=== PATIENT | female | born 1980 | race Caucasian/White ===

== ENCOUNTER 2016-12-13 07:41 | Emergency (ER) | payer OTHER ==
[2016-12-13 07:58] VITALS: BP 116/84
--- NOTE | 2016-12-13 08:00 | UC ---
Abdominal Pain Female HPI - HPI Summary HPI Summary: She has had right lower flank pain for about two weeks. at times pressure and massage down there did help. Now palpation of the area hurts more. She has had nausea. she has had right abd pain as well. she has hx of prior stone without need for intervention. she has seen Dr. Bailey one time. - History of Current Complaint Chief Complaint: UCAbdominalPain Stated Complaint: ABDOMINAL PAIN Time Seen by Provider: 12/13/16 07:47 Hx Obtained From: Patient Hx Last Menstrual Period: pt states she does not get a menses d/t an ablasion ?: No Onset/Duration: Gradual Onset, Lasting Weeks, Worse Since - last night. Timing: Constant Severity Initially: Mild Severity Currently: Severe Location: Other - diffuse right sided pain and right flank pain. Radiates to: Back, Flank Character: Aching Aggravating Factor(s): Movement Alleviating Factor(s): Nothing Associated Signs and Symptoms: Positive: Back Pain, Nausea. Negative: Diaphoresis, Fever, Cough, Chest Pain, Constipation, Blood in Stool, Urinary Symptoms, Decreased Appetite, Vaginal Bleeding, Vaginal Discharge, Vomiting, Diarrhea Allergies/Adverse Reactions: Allergies Allergy/AdvReac Type Severity Reaction Status Date / Time Prochlorperazine Allergy Severe See Comment Verified 12/13/16 07:49 [From Compazine] Promethazine [From Phenergan] Allergy Severe See Comment Verified 12/13/16 07:49 Sulfamethoxazole Allergy Severe See Comment Verified 12/13/16 07:49 w/Trimethoprim [From Bactrim] Phenazopyridine Allergy Intermediate Hives Verified 12/13/16 07:49 [From Pyridium] Home Medications: Home Medications Acetaminophen [Acetaminophen Extra Stren] 1,500 mg PO Q4H PRN 12/13/16 [History Confirmed 12/13/16] PMH/Surg Hx/FS Hx/Imm Hx Previously Healthy: No - kidney stone. - Surgical History Surgical History: Yes Surgery Procedure, Year, and Place: C-SECT X2, uterine ablation, tubes tied. Fallopian tubes removed - Family History Known Family History: Positive: Cardiac Disease, Hypertension, Diabetes - Social History Alcohol Use: Rare Alcohol Amount: 1 PER YEAR Substance Use Type: None Smoking Status (MU): Former Smoker Have You Smoked in the Last Year: No When Did the Patient Quit Smoking/Using Tobacco: 2000 Review of Systems Gastrointestinal: Abdominal Pain, Nausea Genitourinary: Negative All Other Systems Reviewed And Are Negative: Yes Physical Exam Triage Information Reviewed: Yes Appearance: Pain Distress - she has some obvious pain without extremis or severe distress., Obese Vital Signs: Initial Vital Signs Temp 97.3 F 12/13/16 07:52 Pulse 113 12/13/16 07:52 Resp 18 12/13/16 07:52 BP 116/84 12/13/16 07:52 Pulse Ox 99 12/13/16 07:52 Vital Signs Reviewed: Yes Eye Exam: Normal ENT Exam: Normal Neck exam: Normal Respiratory Exam: Normal Cardiovascular Exam: Normal - HR in triage noted and elevated. during my exam HR is 92. Abdominal Exam: Other - external pelvic no lesions. internal, no discharge or inflammation. No cervical inflammation or friability. Bi manual does not reveal guarding or mass. Abdomen Description: Positive: CVA Tenderness (R). Negative: Distended, Guarding, Hernia @, Hepatomegaly, McBurney's Point Tenderness - there is diffuse right sided abd tenderness per patient but no wincing or guarding and no rebound. Neg psoas sign., Peritoneal Signs, Splenomegaly Musculoskeletal Exam: Normal Neurological Exam: Normal Skin Exam: Normal Re-Evaluation - Re-Evaluation First Eval Change: Improved Comment: We talk at length about the results. she says this is similar to prior presentation about a year ago. She says she had 4mo of similar pain and pcp/accountant clerk conducted workup with CT w/ contrast, ultrasounds and exams. they finally elected to perform ex laproscopy and found fallopian tube inflammation. the prior episode was similar in type and location of pain. her repeat exam is benign again with no significant tenderness and no guarding. we will complete workup with pelvic exam. Abd Pain Female Course/Dx - Course Course Of Treatment: Repeat episode of diffuse right flank and right abd pain. her two exams are benign and does not show evidence of acute abd process such as appendiciits, PID, ovarian torsion, pyelonephritis, serious infection. We have also investigated for kidney stone. she is low risk for pelvic infection and without fever or guarding on pelvic exam, I do not believe this is PID or serious pelvic infection. becaause this has been present for two weeks, this has occurred exactly the same as prior, and because her serial exams are benign , I do not believe she needs to be sent to the ed or have a surgical consultation. she does however, agree to return for any worsening for a repeat exam because despite a normal ct which mentions normal appearing appedix, appedicitis is still on the differential. she agrees fully with the plan and re eval if needed. - Differential Dx/Diagnosis Differential Diagnosis: Appendicitis, Constipation, Diverticulitis, Ectopic , Irritable Bowel Syndrome, KS, Ovarian Cyst, Pancreatitis, Pelvic Inflammatory Disease, , Renal Colic, Urinary Tract Infection Provider Diagnoses: flank pain. abd pain Discharge - Discharge Plan Condition: Good Disposition: HOME Prescriptions: traMADol TAB* [Ultram*] 50 mg PO Q12H PRN #12 tab MDD 2 PRN Reason: Pain Patient Education Materials: Acute Abdominal Pain (ED), Flank Pain (ED) Referrals: Ronan Ramirez PA [Primary Care Provider] - 1 Day
[2016-12-13] MEDS ORDERED: Ketorolac INJ* 30 MG/ML 1 ML VIAL IV ONE (08:07)
[2016-12-13] MEDS ORDERED: Ondansetron INJ* 2 MG/ML VIAL IV ONE (08:07)
[2016-12-13] MEDS ORDERED: NS 0.9% 1000 ML* 1,000 ML IV ONE (08:07)
--- NOTE | 2016-12-13 09:06 | RAD ---
INDICATION: Right flank abdominal pain. COMPARISON: Comparison is made with a prior CT of the abdomen and pelvis from May 26, 2014. TECHNIQUE: A CT scan of the abdomen and pelvis was performed without intravenous or oral contrast. Contiguous axial sections were obtained from the lung bases through the symphysis pubis. Images were reconstructed in the coronal and sagittal planes. FINDINGS: There is minimal atelectasis in the region of the right middle lobe. The lung bases are otherwise clear. No pleural effusion is present. The liver is moderately enlarged and the spleen is mildly enlarged. The liver is decreased in attenuation consistent with fatty infiltration. No significant focal abnormality is seen on this noncontrast study. No calcified gallstones are noted. The pancreas appears to be within normal limits. The adrenal glands and kidneys are normal in size. There are multiple left renal calculi measuring up to 0.9 cm in size. There is a small punctate 1 mm calculus in the midportion of the right kidney. No hydronephrosis is seen. No ureteral or bladder calculi are seen. The aorta is normal in caliber without significant calcific plaque. No significant enlarged retroperitoneal lymph nodes are seen. The stomach, small and large bowel appear nondistended. The appendix is within normal limits. There is no evidence for diverticulitis or colitis. There is a small periumbilical hernia containing fat. The uterus is anteverted and mildly prominent. The ovaries appear normal in size. No free intraperitoneal air or fluid is seen. No significant focal osseous abnormality is seen. IMPRESSION: 1. BILATERAL RENAL CALCULI, NO EVIDENCE FOR OBSTRUCTION OR HYDRONEPHROSIS. 2. HEPATOSPLENOMEGALY AND HEPATIC STEATOSIS.
[2016-12-13 14:44] LABS: Hematocrit 37 % (35-47); Hemoglobin 12.3 g/dl (12.0-16.0); Mean Corpuscular HGB Conc 33 g/dl (31-36); Mean Corpuscular Hemoglobin 28 pg (27-31); Mean Corpuscular Volume 86 fL (80-97); Mean Platelet Volume 8 um3 (7.4-10.4); Red Blood Count 4.35 10^6/ul (4.0-5.4); Red Cell Distribution Width 14 % (10.5-15); White Blood Count 10.4 10^3/ul (3.5-10.8)
[2016-12-13 14:55] LABS: Albumin 4.1 g/dL (3.2-5.2); BUN/Creatinine Ratio 14.6 (8-20); Calcium 9.1 mg/dL (8.6-10.3); EGFR Non-African American 79.3 (>60); Globulin 2.8 g/dL (2-4); Potassium 4.5 mmol/L (3.5-5.0); Total Bilirubin 0.5 mg/dL (0.2-1.0); Total Protein 6.9 g/dL (6.4-8.9)
[2016-12-13 16:38] LABS: Erythrocyte Sed Rate 120 mm/Hr (0-14)
== END 2016-12-13 10:37 | disposition home or self-care (01) ==
LOC: UCCORT 07:41
DX: M54.5 Low back pain (principal); R10.31 Right lower quadrant pain; R11.0 Nausea; Z87.442 Personal history of urinary calculi; E66.9 Obesity, unspecified; Z88.2 Allergy status to sulfonamides; Z88.8 Allergy status to other drugs, medicaments and biological substances; Z87.891 Personal history of nicotine dependence
CPT/HCPCS: 36415; 74176; 80053; 81003; 83690; 85025; 85652; 86141; 87086; 87480; 87491; 87510; 87591; 87661; 96361; 96374; 96375; 99212; G0463; J1885; J2405

== ENCOUNTER 2016-12-29 07:33 | Day surgery (SDC) | payer OTHER ==
[~2016-12-29 07:33] MED LIST: Buffered Lidocaine 0.9% SYRIN* 5 ML/SYR SYRINGE INTRADERM ONE; Famotidine IV* 10 MG/ML 2 ML (20 mg) IV ONE; Metoclopramide TAB* 10 MG PO ONE
[2016-12-29] MEDS ORDERED: Famotidine IV* 10 MG/ML 2 ML (20 mg) ONE (07:57)
[2016-12-29] MEDS ORDERED: Metoclopramide TAB* 10 MG ONE (07:57)
[2016-12-29 08:18] LABS: Comments Flag Yes; Hematocrit 38 % (35-47); Mean Corpuscular HGB Conc 34 g/dl (31-36); Mean Corpuscular Hemoglobin 29 pg (27-31); Mean Corpuscular Volume 85 fL (80-97); Mean Platelet Volume 8 um3 (7.4-10.4); Red Cell Distribution Width 13 % (10.5-15); White Blood Count 10.2 10^3/ul (3.5-10.8)
[2016-12-29] MEDS ORDERED: Propofol* 10 MG/ML 20 ML BTL IV PUSH ONE (08:19)
[2016-12-29] MEDS ORDERED: Ketorolac INJ* 30 MG/ML 1 ML VIAL ONE (08:19)
[2016-12-29] MEDS ORDERED: Dexamethasone IV* 4 MG/ML 1 ML (4 MG) ONE (08:19)
[2016-12-29] MEDS ORDERED: Ondansetron INJ* 2 MG/ML VIAL ONE (08:19)
[2016-12-29] MEDS ORDERED: Lidocaine 2% PF * 5 ML VIAL ONE (08:19)
[2016-12-29] MEDS ORDERED: Cisatracurium* 2 MG/ML MDV 5 ML ONE (08:20)
[2016-12-29] MEDS ORDERED: fentaNYL* 50 MCG/ML 2 ML VIAL (100 MCG VIAL) ONE (08:20)
[2016-12-29] MEDS ORDERED: Midazolam* 1 MG/ML 5 ML VIAL (5 MG) ONE (08:20)
[2016-12-29] MEDS ORDERED: KETAMINE HCL* 50 MG/ML 10 ML VIAL ONE (08:20)
[2016-12-29] MEDS ORDERED: Bupivacaine 0.25% SDV* 30 ML ONE (08:49)
[2016-12-29] MEDS ORDERED: Phenylephrine IV* 40 MCG/ML 10 ML SYRINGE ONE (09:48)
[2016-12-29] MEDS ORDERED: Glycopyrrolate IV* 0.2 MG/ML 1 ML VIAL ONE (10:09)
[2016-12-29] MEDS ORDERED: Neostigmine Methylsulfate* 2 MG/2 ML SYRINGE ONE (10:09)
[2016-12-29] MEDS ORDERED: Ondansetron INJ* 2 MG/ML VIAL IV PRN (10:35)
[2016-12-29] MEDS ORDERED: oxyCODONE/Acetamin 5/325 MG* TAB PO PRN (10:35)
[2016-12-29] MEDS ORDERED: fentaNYL* 50 MCG/ML 2 ML VIAL (100 MCG VIAL) IV PRN (10:35)
[2016-12-29] MEDS ORDERED: oxyCODONE/Acetamin 5/325 MG* TAB ONE (11:36)
[2016-12-29 11:56] VITALS: BP 102/69
--- NOTE | 2016-12-31 00:25 | OP ---
OPERATIVE REPORT: DATE OF OPERATION: 12/29/16 DATE OF : 82 SURGEON: Dora Ramirez MD DOCUMENT DESIGN SPECIALIST: Yunior Armenta MD PRE-OP DIAGNOSIS: Right lower quadrant pain. POST-OP DIAGNOSIS: Post tubal ablation syndrome. OPERATIVE PROCEDURE: Operative laparoscopy with lysis of adhesions. INDICATIONS: This patient is a 36-year-old 9, para 3, who presented to the office this month with complaint of severe right lower quadrant pains, which were fairly persistent. The pains were not cyclic. Recent evaluation in the emergency department including CT scan was unremarkable. The patient presented to the [facility] office because last year she had very similar pains, which again were fully worked up by [facility], GI, and General Surgery, but no clear cause could be determined. Then, at that point, I brought the patient to the operating room for evaluation and both fallopian tubes were found to be markedly dilated and inflamed. Both fallopian tubes were removed and the patient had complete resolution of her pain for the last year. The patient's history was significant for a tubal ligation followed by an endometrial ablation few years earlier. Considering the patient's pain had returned and there was still no visible evidence of any abnormalities on imaging, we discussed the option of potentially removing the right ovary in an attempt to improve the pain. She was extensively counseled and consent was signed. FINDINGS: Bilateral ovaries appeared normal. Uterus significantly abnormal with a right cornua that was markedly dilated clearly from trapped menstrual blood that could not pass through the cervix due to scarring from the prior ablation. Considering there were no visible abnormalities of the ovary, the ovary was left in place. Some adhesions were lysed around the right cornua for better visualization. ESTIMATED BLOOD LOSS: Less than 10 cc. URINE OUTPUT: 300 cc. IV FLUIDS: 1900 cc lactated Ringer's. MATERIALS TO LAB: None. COMPLICATIONS: None. DESCRIPTION OF PROCEDURE: The risks, benefits, and alternatives were described to the patient and informed consent was obtained. The patient was taken to the operating room with IV running where general anesthesia was induced and found to be adequate. The patient was prepped and draped in the normal sterile fashion in the high lithotomy position in [facility]. A time-out was performed. A Burks catheter was placed. A bivalved speculum was placed in the vagina and a Hulka tenaculum was placed through the cervix and into the uterine cavity for uterine manipulation. At that time, the speculum was removed and the legs were lowered. Attention was then turned to the abdomen and gloves were changed. Approximately 6 cc of 0.25% Marcaine was injected into and below the umbilicus. A vertical skin incision was then made with a scalpel, approximately 3 to 4 cm in length. The subcutaneous tissues were dissected until the fascia was grasped and elevated. The fascia was then incised in the midline in a sagittal fashion. The peritoneum was then entered sharply. A mini Demetrius retractor was then placed into the peritoneal cavity and this was tightened down. A GelPOINT was then prepared and placed on the retractor. The abdomen was insufflated with carbon dioxide gas to a maximum pressure of 15 mmHg. The patient was placed in the Trendelenburg position as much as possible. While using 2 graspers for manipulating the bowel, the uterus was lifted and the pelvis was carefully inspected. The findings were as noted above. There were some adhesions around the right cornua, which were taken down using the LigaSure. Once this was done, the right cornua could be well visualized and it was significantly dilated clearly from entrapped menstrual blood. With some significant difficulty, the right ovary was visualized and appeared to be normal with just a corpus luteum cyst present. The left ovary also appeared normal. Due to the patient's morbid obesity, there was large amount of bowel and omental fat, which made full visualization impossible. Considering the ovary appeared normal and the uterus was clearly the cause of her pain, the decision was made to discontinue the procedure at that time as she was not consented for a hysterectomy. The gas was allowed to escape from the abdomen and the Demetrius retractor was removed. The fascia was grasped on both sides and reapproximated using 0 Polysorb in a running fashion. The skin was then closed with 4-0 Monocryl in a subcuticular stitch and DermaFlex skin adhesive was applied over the incision. The Hulka tenaculum was then removed from the cervix , and the Burks catheter was also removed. The patient was then returned to the supine position. The patient tolerated the procedure well. Sponge, lap, and needle counts were correct x2. [id number]/[facility] #: [id number] MTDD
== END 2016-12-29 12:01 | disposition home or self-care (01) ==
LOC: OR 07:33
PROVIDERS: ATTEND Obstetrics & Gynecology
DX: N83.8 Other noninflammatory disorders of ovary, fallopian tube and broad ligament (principal); N73.6 Female pelvic peritoneal adhesions (postinfective); N85.7 Hematometra; E66.01 Morbid (severe) obesity due to excess calories; N83.11 Corpus luteum cyst of right ovary; Z68.39 Body mass index [BMI] 39.0-39.9, adult; J45.909 Unspecified asthma, uncomplicated; K21.9 Gastro-esophageal reflux disease without esophagitis; E03.9 Hypothyroidism, unspecified; F41.9 Anxiety disorder, unspecified; F32.9 Major depressive disorder, single episode, unspecified; Z88.1 Allergy status to other antibiotic agents; Z88.8 Allergy status to other drugs, medicaments and biological substances; Z87.891 Personal history of nicotine dependence
CPT/HCPCS: 36415; 85025; 86850; 86900; 86901; A9270-GY; J1100; J1885; J2250; J2405; J2704; J3010

== ENCOUNTER 2017-03-09 06:58 | Inpatient (IN) | payer OTHER ==
[~2017-03-09 06:58] MED LIST changes: -Famotidine IV* 10 MG/ML 2 ML (20 mg) IV ONE; -Metoclopramide TAB* 10 MG PO ONE; +Sodium Citrate/Citric Acid* 15 ML UDC PO ONE
[2017-03-09] MEDS ORDERED: ceFOXitin 2 GM IVPREMIX* 2 GM/50 ML BAG ONE (07:04)
[2017-03-09] MEDS ORDERED: Sodium Citrate/Citric Acid* 15 ML UDC ONE (07:04)
[2017-03-09] MEDS ORDERED: Bupivacaine 0.5% SDV PF* 30 ML VIAL ONE (08:27)
[2017-03-09] MEDS ORDERED: Midazolam* 1 MG/ML 5 ML VIAL (5 MG) ONE (08:39)
[2017-03-09] MEDS ORDERED: Morphine PF AMP (0.5MG/ML)* 5 MG/10 ML AMP ONE (08:39)
[2017-03-09] MEDS ORDERED: Propofol* 10 MG/ML 20 ML BTL IV PUSH ONE ×2 (09:44→10:16)
[2017-03-09] MEDS ORDERED: Lidocaine 2% PF * 5 ML VIAL ONE (09:45)
[2017-03-09] MEDS ORDERED: diPHENhydraMINE IV* 50 MG/ML 1 ml VIAL (BENADRYL) IV PRN (09:47)
[2017-03-09] MEDS ORDERED: oxyCODONE/Acetamin 5/325 MG* TAB PO PRN (09:47)
[2017-03-09] MEDS ORDERED: Naloxone* 0.4 MG/ML 1 ML VIAL IV PRN (09:47)
[2017-03-09] MEDS ORDERED: Dexamethasone IV* 4 MG/ML 1 ML (4 MG) ONE (10:16)
[2017-03-09] MEDS ORDERED: diPHENhydraMINE IV* 50 MG/ML 1 ml VIAL (BENADRYL) ONE (10:52)
[2017-03-09] MEDS ORDERED: Ondansetron INJ* 2 MG/ML VIAL IV PRN (10:56)
[2017-03-09] MEDS ORDERED: Ketorolac INJ* 30 MG/ML 1 ML VIAL IV PUSH SCH (11:00)
[2017-03-09] MEDS: Ibuprofen TAB* 400 MG PO SCH ×3 (12:49→21:05)
[2017-03-09] MEDS: Simethicone TAB* 80 MG TAB.CHEW PO SCH ×3 (13:08→21:06)
[2017-03-10] MEDS ORDERED: oxyCODONE/Acetamin 5/325 MG* TAB PO PRN ×2 (01:03)
[2017-03-10] MEDS: Ketorolac INJ* 30 MG/ML 1 ML VIAL IV PUSH SCH ×2 (01:21→07:21)
[2017-03-10 05:18] LABS: Hematocrit 34 % (35-47); Hemoglobin 11.3 g/dl (12.0-16.0); Mean Corpuscular HGB Conc 33 g/dl (31-36); Mean Corpuscular Hemoglobin 29 pg (27-31); Mean Corpuscular Volume 86 fL (80-97); Mean Platelet Volume 7 um3 (7.4-10.4); Red Blood Count 3.95 10^6/ul (4.0-5.4); Red Cell Distribution Width 13 % (10.5-15)
[2017-03-10] MEDS: Simethicone TAB* 80 MG TAB.CHEW PO SCH (08:39)
[2017-03-10 11:25] VITALS: BP 134/66
--- NOTE | 2017-03-10 15:56 | DS ---
DISCHARGE SUMMARY: DATE OF ADMISSION: 03/09/17 DATE OF DISCHARGE: 03/10/17 HOSPITAL COURSE: This patient was a 36-year-old 6, para 2 who, on the day of admission, underwent an uncomplicated scheduled abdominal supracervical hysterectomy. The patient had been diagnosed with post tubal ablation syndrome and a recent laparoscopy. She is extensively counseled and consent was signed. Surgery was notable for significant abdominal adhesions. The estimated blood loss was 75 mL. The patient's hospital course is unremarkable. On postoperative day #1, the patient was ambulating very frequently, tolerating a regular diet and voiding spontaneously. She had received only scheduled Toradol for most of her pain control. She was discharged home in good condition on postoperative day #1. DISCHARGE PHYSICAL EXAMINATION: Vital Signs: Within normal limits, afebrile. General: The patient in no acute distress. Supine in bed. Abdomen: Soft, minimal tenderness to palpation. Incision, clean, dry, and intact with Steri- Strips in place. LABORATORY INFORMATION: Postoperative hematocrit 34, platelets 334. DISCHARGE INSTRUCTIONS: Please see the printed instructions, which were reviewed with the patient at the bedside. DISCHARGE MEDICATIONS: Please see the patient's medication reconciliation in [employer]. DISCHARGE DIAGNOSIS: Posttubal ablation syndrome and right lower quadrant pain , status post abdominal supracervical hysterectomy. [id number]/[facility] #: [id number] MTDTimmy
--- NOTE | 2017-03-11 02:33 | OP ---
DATE OF OPERATION: 03/09/17 - ROOM #334 DATE OF : 82 SURGEON: Dora Ramirez MD AUTOMATIC VULCANIZING OPERATOR: Mary Harris MD ANESTHESIOLOGIST: Manohar Faria DO ANESTHESIA: General endotracheal. 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 OPERATIVE PROCEDURE: Abdominal supracervical hysterectomy. INDICATIONS: This patient is a 36-year-old 6, para 2, who presented with fairly persistent right lower quadrant pain a couple of months ago. A year earlier, the patient had underwent bilateral laparoscopic salpingectomy for post tubal ablation syndrome when she was found to have persistent constant pelvic pain and the fallopian tubes were noted to be markedly dilated likely from menstrual blood that could not escape from either the tube or the cervix. The patient had a good resolution of her pain with the first surgery; however, after about 9 months, she started having right lower quadrant pain. Laparoscopy which was done about 2 months ago found the right cornua had become markedly dilated and the decision was made to schedule a hysterectomy. Due to the patient's significant obesity and difficulty with getting adequate visualization of the pelvis during the previous laparoscopic surgery, decision was made to do this abdominally. The patient was extensively counseled and consent was signed. In addition, the patient desired to have her cervix retained. ESTIMATED BLOOD LOSS: 75 cc. URINE OUTPUT: 500 cc. IV FLUIDS: 1600 cc lactated Ringer's. MATERIALS TO LAB: Uterus without cervix. FINDINGS: Mildly enlarged uterus with markedly dilated right cornua. Both ovaries appeared normal. There were some modest adhesions in the pelvis involving bowel and omentum. COMPLICATIONS: None. DESCRIPTION OF PROCEDURE: The risks, benefits, and alternatives were described to the patient and informed consent was obtained. The patient was taken to the operating room with IV running where general anesthesia was induced and found to be adequate. The patient was prepped and draped in the normal sterile fashion in the supine position. A Burks catheter was placed during the prep. A time-out was performed. A Pfannenstiel skin incision was made with a scalpel through the patient's prior incision after injecting about 10 cc of 0.25% Marcaine under the skin. This was carried down to the underlying fascia, which was scored in the midline. The fascia was then incised using Faustin scissors laterally on both sides. The rectus muscles were dissected off the rectus fascia using blunt and sharp dissection. Scalpel was used for much of the upper aspect of the fascial dissection due to prior adhesions. The rectus muscles were then in the midline using dissection with Mi clamps and Metzenbaum scissors. The peritoneum was entered sharply and the separation between the rectus muscles was further extended in both directions. The patient was placed in some Trendelenburg position to try to assist with getting the bowel out of the pelvis. Moist laparotomy sponges were placed in the upper abdomen to try to retract the bowel. A medium Demetrius retractor was then placed into the abdomen and tightened down against the skin. The anterior abdominal wall was palpated and there was no bowel trapped inside the retractor. The uterus was palpated and then visualized. A Cathleen thyroid clamp was then used to grasp the right fundus of the uterus to elevate it. A LigaSure Impact was used to clamp, coagulate, and transect the uteroovarian ligament. The round ligament and broad ligaments were also opened with the Impact with excellent hemostasis. The uterine vessels were then skeletonized, clamped, and then cauterized using the Impact. The same was then performed on the patient's left side. During this dissection, 1 Filshie clip was noted from the patient's prior tubal ligation and this was excised with Metzenbaum scissors and handed off. The uterine vessels were coagulated and transected. A bladder flap was created using extensive dissection as there was significant scarring in the lower uterine segment. Once the vasculature to the uterus was clearly disrupted, the uterus was elevated and amputated from the mid to upper cervix using the Bovie. The uterus was then handed off as a specimen. The cervical stump was grasped with Sylvia clamps and elevated. As there was some bleeding from the serosal edges, the cervical stump was oversewn using 0 Vicryl in a running locked stitch. The endocervical canal was also cauterized prior to the oversewing. There was good hemostasis present at that time. A few small areas of bleeding were identified and cauterized without difficulty. The pelvis was then copiously irrigated with saline. This fluid was removed with suction. Once both pedicles were clearly hemostatic and the cervix was also hemostatic, the moist laparotomy sponges were removed from the abdomen. The Demetrius retractor was then also removed. Of note, the urine in the catheter was inspected during the surgery and noted to be clear without any evidence of bleeding. The peritoneum was then reapproximated using 0 Vicryl in a running stitch. The fascia was then closed with 0 Vicryl in a running stitch. The subcutaneous tissues were copiously irrigated and made hemostatic using the Bovie. The subcutaneous tissues were reapproximated using 3-0 Vicryl in interrupted stitches. The skin was then closed with 4-0 Monocryl in a subcuticular stitch. This was overlaid with Mastisol and Steri- Strips and then covered with a sterile dressing. The patient tolerated the procedure well. Sponge, lap, and needle counts were correct x2. [id number]/[facility] #: [id number] [facility]
== END 2017-03-10 11:30 | disposition home or self-care (01) | DRG 951 ==
LOC: AA 06:58 → SSU 13:04
PROVIDERS: ADMIT Obstetrics & Gynecology; ATTEND Obstetrics & Gynecology
PROC: 0UT90ZL Resection of Uterus, Supracervical, Open Approach (ICD-10-PCS; principal; 2017-03-09 08:45)
DX: N99.89 Other postprocedural complications and disorders of genitourinary system (principal); E66.9 Obesity, unspecified; F41.9 Anxiety disorder, unspecified; K21.9 Gastro-esophageal reflux disease without esophagitis; Y69 Unspecified misadventure during surgical and medical care; Y76.3 Surgical instruments, materials and obstetric and gynecological devices (including sutures) associated with adverse incidents; J45.909 Unspecified asthma, uncomplicated; F32.9 Major depressive disorder, single episode, unspecified; Z98.51 Tubal ligation status; Z90.79 Acquired absence of other genital organ(s); Z83.3 Family history of diabetes mellitus; Z82.49 Family history of ischemic heart disease and other diseases of the circulatory system; Z80.0 Family history of malignant neoplasm of digestive organs; Z82.62 Family history of osteoporosis; Z56.0 Unemployment, unspecified; Z87.891 Personal history of nicotine dependence; Z68.39 Body mass index [BMI] 39.0-39.9, adult; Y92.009 Unspecified place in unspecified non-institutional (private) residence as the place of occurrence of the external cause
CPT/HCPCS: 36415; 81025; 85025; 88307; 94760; A9270-GY; J0694; J1100; J1200; J1885; J2250; J2704

== ENCOUNTER 2019-05-10 09:01 | Emergency (ER) | payer OTHER ==
[2019-05-10 09:40] VITALS: BP 108/69
[2019-05-10 09:56] LABS: Influenza B Molecular POSITIVE (Negative)
--- NOTE | 2019-05-10 09:59 | UC ---
UC General HPI - HPI Summary HPI Summary: Patient is 38 year old female , who present today to the urgent care with flulike illness since yesterday. She is here with her daughter who was tested positive for influenza. Reports cough and fever up to 101F, headache. Associated body aches Denies any chest pain or shortness of breath . No diaphoresis. Denies any abdominal pain , nausea or vomiting , diarrhea or constipation. - History of Current Complaint Chief Complaint: UCGeneralIllness Stated Complaint: FLU SYMP Time Seen by Provider: 05/10/19 09:39 Hx Obtained From: Patient Hx Last Menstrual Period: pt states she does not get a menses d/t an ablasion Pain Intensity: 10 - Allergy/Home Medications Allergies/Adverse Reactions: Allergies Allergy/AdvReac Type Severity Reaction Status Date / Time MS Phenazopyridine Allergy Severe Hives Verified 05/10/19 09:41 [From Pyridium] MS Prochlorperazine Allergy Severe See Comment Verified 05/10/19 09:41 [From Compazine] MS Promethazine Allergy Severe See Comment Verified 05/10/19 09:41 [From Phenergan] MS Sulfamethoxazole Allergy Severe See Comment Verified 05/10/19 09:41 w/Trimethoprim [From Bactrim] Home Medications: Home Medications Cholecalciferol TAB* [Vitamin D TAB*] 1,000 unit PO DAILY 05/10/19 [History Confirmed 05/10/19] Metformin HCl [Glucophage Xr] 500 mg PO DAILY 05/10/19 [History Confirmed ] Omeprazole 40 mg PO DAILY 05/10/19 [History Confirmed 05/10/19] Sertraline HCl [Zoloft] 100 mg PO DAILY 05/10/19 [History Confirmed 05/10/19] PMH/Surg Hx/FS Hx/Imm Hx - Additional Past Medical History Additional PMH: Past Medical History : DM 1, asthma, hypothyroidism Past Surgical History: C-SECT X2, uterine ablation, tubes tied Fallopian tubes removed D&C-6+YEARS AGO Family History : non contributory Social History : Rare alcohol, former smoker, no drug use. Previously Healthy: Yes - Surgical History Surgical History: Yes Surgery Procedure, Year, and Place: C-SECT X2, uterine ablation, tubes tied. Fallopian tubes removed. D&C-6+YEARS AGO - Family History Known Family History: Positive: Cardiac Disease, Hypertension, Diabetes, Non- Contributory - Social History Alcohol Use: Rare Alcohol Amount: 1 PER YEAR Substance Use Type: None Smoking Status (MU): Former Smoker Type: Cigarettes Amount Used/How Often: 2-3 CIGARETTES PER DAY X 1 YEAR Length of Time of Smoking/Using Tobacco: 1 YR Have You Smoked in the Last Year: No When Did the Patient Quit Smoking/Using Tobacco: 2010 - Immunization History Most Recent Influenza Vaccination: 2017 Most Recent Pneumonia Vaccination: NONE Review of Systems All Other Systems Reviewed And Are Negative: Yes Constitutional: Positive: Fever, Fatigue Skin: Positive: Negative Eyes: Positive: Negative ENT: Positive: Negative Respiratory: Positive: Cough Cardiovascular: Positive: Negative Gastrointestinal: Positive: Negative Genitourinary: Positive: Negative Motor: Positive: Negative Neurovascular: Positive: Negative Musculoskeletal: Positive: Myalgia Neurological: Positive: Negative Psychological: Positive: Negative Is Patient Immunocompromised?: No Physical Exam - Summary Physical Exam Summary: Physical Exam: Const: Appears well. No signs of apparent distress present. Alert and oriented x 3. Musculo: Walks with a normal gait. Head/Face: Atraumatic, normocephalic on inspection. Eyes: EOMI and PERRLA in both eyes. Conjunctivae clear. No discharge noted ENT: Hearing normal, TM normal appearing bilaterally, non bulging , non erythematous . No tenderness to palpation on maxillary and frontal sinus. Mild pharyngeal erythema or exudates . Uvula is midline. No cervical or submandibular lymphadenopathy noted. Respiratory: Respirations are unlabored. Lungs clear to auscultation bilaterally, no wheezing , rhonchi or rales noted . CVS: Regular rate and Rhythm, S1S2 normal , no murmurs identified. Extremities: Peripheral circulation is grossly normal. Pulses 2+ Abdomen : Soft non tender , nondistended , Bowel sounds present . No guarding , rebound tenderness or rigidity noted. Skin: No lesions or rash located on the upper extremities or on the lower extremities. Neuro: Cranial nerves II to XII intact, motor and sensory intact. DTR Intact bilaterally. Mood is normal. Affect is normal. Triage Information Reviewed: Yes Vital Signs: Initial Vital Signs Temp 98.3 F 05/10/19 09:37 Pulse 129 05/10/19 09:37 Resp 14 05/10/19 09:37 BP 108/69 05/10/19 09:37 Pulse Ox 97 05/10/19 09:37 Vital Signs Reviewed: Yes Course/Dx - Course Course Of Treatment: Test for influenza B+ Treat for Tamiflu - Diagnoses Provider Diagnosis: Influenza B Discharge ED - Sign-Out/Discharge Documenting (check all that apply): Patient Departure All imaging exams completed and their final reports reviewed: No Studies - Discharge Plan Condition: Stable Disposition: HOME Prescriptions: Oseltamivir CAP* [Tamiflu CAP*] 75 mg PO BID 5 Days #10 cap Patient Education Materials: Influenza (ED) Referrals: Ronan Ramirez PA [Primary Care Provider] - 1 Week Additional Instructions: Please start taking the medication as prescribed to the pharmacy . Maintain hydration Tylenol or ibuprofen as needed for fever Follow up with your primary care doctor in 1 week Return to Urgent care / ER if symptoms get worse. - Billing Disposition and Condition Condition: STABLE Disposition: Home
== END 2019-05-10 10:40 | disposition home or self-care (01) ==
LOC: UCCORT 09:01
DX: J10.1 Influenza due to other identified influenza virus with other respiratory manifestations (principal); E10.9 Type 1 diabetes mellitus without complications; J45.909 Unspecified asthma, uncomplicated; Z79.84 Long term (current) use of oral hypoglycemic drugs; Z88.2 Allergy status to sulfonamides; Z88.8 Allergy status to other drugs, medicaments and biological substances; Z87.891 Personal history of nicotine dependence
CPT/HCPCS: 99212; G0463